=== PATIENT | female | born 1995 | race Caucasian/White ===

== ENCOUNTER 2020-06-02 08:21 | Day surgery (SDC) | payer BC ==
[2020-06-02] MEDS ORDERED: Lactated Ringers 1,000 ML IV ONE ×2 (08:36→08:42)
[2020-06-02] MEDS ORDERED: MEFOXIN 2 GM PREMIX** 2 GM/50 ML ML IV ONE (08:36)
[2020-06-02] MEDS ORDERED: Sensorcaine 0.25% 10 ML ONE ×3 (08:42→12:42)
[2020-06-02] MEDS ORDERED: MEFOXIN 2 GM PREMIX** 2 GM/50 ML ML IV SCH (09:00)
[2020-06-02] MEDS ORDERED: Lactated Ringers 1,000 ML IV SCH (09:00)
[2020-06-02] MEDS ORDERED: DIPRIVAN 200 MG/20 ML IV ONE (10:46)
[2020-06-02] MEDS ORDERED: Zemuron 100 MG/10 ML ONE (10:46)
[2020-06-02] MEDS ORDERED: Versed 2 MG/2 ML Injection ONE (10:46)
[2020-06-02] MEDS ORDERED: SUBLIMAZE 250 MCG/5 ML ONE (10:46)
[2020-06-02] MEDS ORDERED: Zofran 4 MG/2 ML VIAL ONE (11:08)
[2020-06-02] MEDS ORDERED: Decadron 4 MG INJ ONE (11:08)
[2020-06-02] MEDS ORDERED: BRIDION 200MG/2ML IV ONE (11:44)
[2020-06-02] MEDS ORDERED: TORAdol 30 mg Injection ONE ×2 (11:53→12:10)
[2020-06-02] MEDS ORDERED: MORPHINE SULFATE 10 MG/ML ONE (11:54)
[2020-06-02] MEDS ORDERED: Compazine 10 MG/2 ML ONE (12:10)
[2020-06-02] MEDS ORDERED: SUBLIMAZE 100 MCG/2 ML ONE (12:11)
[2020-06-02 13:08] VITALS: BP 135/71; PULSE 85; O2SAT 99
--- NOTE | 2020-06-02 14:42 | OP ---
SURGERY DATE/TIME: 06/02/2020 1056 PREOPERATIVE DIAGNOSIS: Biliary dyskinesia. POSTOPERATIVE DIAGNOSIS: Biliary dyskinesia. PROCEDURE: Laparoscopic cholecystectomy. SURGEON: Adryan Watson M.D. ANESTHESIA: General. ESTIMATED BLOOD LOSS: Less than 10 cc. COMPLICATIONS: None. SPECIMEN: Gallbladder. FINDINGS: Chronic scarring around the gallbladder. INDICATION: The patient presents with signs and symptoms of biliary dyskinesia with a positive HIDA scan. After discussing risks and benefits of laparoscopic possible open cholecystectomy the patient wished to proceed with surgery. DESCRIPTION OF PROCEDURE: The patient brought to the operating room, placed in supine position on the operating table and placed under general anesthesia. The abdomen was prepped and draped in sterile fashion. A small incision made in the left upper quadrant. Veress needle inserted. Pneumoperitoneum obtained. A 5 mm optical trocar inserted. Under direct visualization the abdomen entered. The area of entry was inspected. There did not appear to be any inadvertent injury. An 11 mm trocar placed above the umbilicus under direct visualization. Two - 5 mm in the right upper quadrant. The patient placed in reverse [place] position and rolled to the left. The fundus of the gallbladder retracted superior laterally. Some omental adhesions taken down from the gallbladder to allow for retraction with electrocautery. The infundibulum retracted inferior laterally. Careful dissection performed in the triangle of Calot and the cystic duct and cystic artery and the bottom third of the hepatocystic plate were completely cleared giving excellent critical view. There was some chronic scarring of the tissue with quite tough tissue but very friendly anatomy. The cystic duct and cystic artery were clipped with 5 mm metal clips, three on the duct stay side and two on the artery stay side and transected with hook scissors. The gallbladder was removed the rest of the way from the liver bed with hook electrocautery. High up in the liver bed a small vessel additional clip was placed for prophylactic hemostasis and the other side cauterized going to the gallbladder. The gallbladder was then removed through the 11 mm trocar site. The trocar site closed with 0 Vicryl suture with a suture passer. The remaining trocars removed under direct visualization. Abdomen desufflated. Wounds injected with 0.25% Marcaine. Wounds closed with 4-0 Vicryl suture, Steri-Strips and dressings were applied. The patient was recovered and taken to PACU in stable condition.
== END 2020-06-02 13:20 | disposition home or self-care (01) ==
LOC: SDC 08:21
PROVIDERS: ATTEND Surgery
DX: K82.8 Other specified diseases of gallbladder (principal)
CPT/HCPCS: 84703; J0694; J1100; J1885; J2250; J2270; J2405; J2704; J3010